=== PATIENT | female | born 1940 | race American Indian/Alaskan Native ===

== ENCOUNTER 2017-04-12 08:07 | Outpatient (CLI) | payer MEDICARE ==
--- NOTE | 2017-04-12 15:45 | PET Report ---
PET/CT:04/12/17 08:07:00 CLINICAL: Right lung cancer initial staging. RADIOPHARMACEUTICAL: 14.83mCi F18-FDG. COMPARISON: CT chest 03/13/[address] abdomen and pelvis 03/17/17 TECHNIQUE- Following intravenous injection of F-18 FDG and an approximately 60 minute uptake period, CT and PET images from the mid skull to the upper thighs were acquired with the patient in the fasted state. No contrast was administered. The CT protocol used for this PET CT study is designed for attenuation correction and anatomic localization of PET abnormalities. This principal database developer CT is not desired to produce and cannot replace, [id number] diagnostic CT scans with specific imaging protocols for different body parts and indications. Plasma glucose at the time of this test: 107g/dl. The standardized uptake values (SUV) are normalized to patient body weight and indicate the highest activity concentration (SUV max) in a given disease site. FINDINGS: Brain--Physiologic FDG uptake in the visualized regions of the brain. Neck--Physiologic FDG uptake . Chest--Physiologic FDG uptake in mediastinal blood pool and myocardium. Lungs--An irregular posterior medial right upper lobe pleural-based mass measures 6.0 x 6.0 x 4.5 cm. Mild cavitation of the mass with a 1 cm pocket of air. The periphery of the mass is FDG avid with SUV 13.2. The mass erodes the right lateral aspect of vertebral bodies T2, T3 and T4 and extends into the spinal canal at T3. There is also erosion of the right third and fourth ribs in the right third and fourth transverse processes. An FDG avid mass in this appears segment of the left lower lobe measures 1.6 x 1.3 cm with SUV 11.3. No other lung mass. Pleura/pericardium--No abnormal uptake. Thoracic nodes--No abnormal uptake. No lymphadenopathy. Hepatobiliary--No abnormal uptake. Liver background SUV mean, as a reference for comparing FDG studies, is 2.9 . No liver mass. Spleen--No abnormal uptake. Pancreas--No abnormal uptake. Adrenal Glands--A 2.0 x 1.8 cm FDG avid right adrenal mass with SUV 6.6. The left adrenal gland is normal. Kidneys/Ureters/Bladder--No abnormal uptake. Abdominopelvic Nodes--Focal FDG uptake in the left pelvis with SUV 13.3 is suspicious for an FDG avid left internal iliac lymph node but the FDG uptake is at the margin of the sigmoid colon and is indistinguishable from an iliac lymph node. Bowel/Peritoneum/Mesentery--No abnormal uptake. Pelvic organs--No abnormal uptake. Bones/Soft Tissues--FDG avid lytic destruction of T2,T3 and T4 vertebra and right ribs and transverse processes 3 and 4. A 1.5 x 1.5 cm FDG avid soft tissue nodule of the left upper back is posterior to the medial left scapula and contiguous to the skin with SUV 10.3. Other findings: Calcified gallbladder filled with stones. IMPRESSION- 1. A 6 cm right upper lobe pleural-based bronchogenic tumor with direct extension to involve the thoracic spine at T2-T4. 2. FDG avid tumor extends into the spinal canal at T3. 3. A 1.6 cm FDG avid left lower lobe superior segment lung metastasis. 4. Right adrenal metastasis. 5. A 1.5 cm deep soft tissue nodular metastasis superficial to the upper medial scapula. 6. Suspicious FDG uptake in the left pelvic sidewall adjacent to the sigmoid colon. This activity correlates with a 1.3 x 1.3 cm hypodense mass on the recent CT pelvis which may be a metastatic internal iliac lymph node.
== END 2017-04-12 08:08 | disposition home or self-care (01) ==
LOC: PET 08:07
PROVIDERS: ATTEND Internal Medicine Hematology & Oncology
DX: C78.02 Secondary malignant neoplasm of left lung (principal); C79.51 Secondary malignant neoplasm of bone; C79.82 Secondary malignant neoplasm of genital organs; C34.11 Malignant neoplasm of upper lobe, right bronchus or lung; K80.20 Calculus of gallbladder without cholecystitis without obstruction; D64.9 Anemia, unspecified; R91.8 Other nonspecific abnormal finding of lung field; Z79.899 Other long term (current) drug therapy
CPT/HCPCS: 78815; 82962; A9552

== ENCOUNTER 2017-07-26 10:56 | Outpatient (CLI) | payer MEDICARE ==
--- NOTE | 2017-07-30 09:17 | PET Report ---
PET SB TO MT SUBSEQUENT: HISTORY: Restaging of lung cancer. TECHNIQUE: 12.9 millicuries F-18 FDG was administered intravenously. Noncontrast CT images and PET images were obtained from the skull base to the proximal thighs. Fused images were reviewed on a workstation. The patient's blood glucose level measured 92. COMPARISON: 04/12/17. FINDINGS: BRAIN: physiologic FDG uptake in the imaged brain. NECK: There are 2 new mildly enlarged left supraclavicular lymph nodes with Max SUV measuring 4.4 and 10.1. LUNGS: The right apical mass appears relatively stable in size measuring 5.9 x 4.4 cm in axial plane. Max SUV has decreased slightly from 12.8 to 11.9. There appears to be mild central necrosis on today's exam. A left lower lobe mass has nearly resolved decreasing from 1.6 cm to 0.5 cm. Max SUV is within normal limits measuring 1.8. No new pulmonary mass is appreciated. PLEURA/PERICARDIUM: physiologic FDG uptake. THORACIC LYMPH NODES: A left axillary lymph node has increased from 1 cm to 2 cm in diameter. Max SUV as increased from 2.8 to 6.8. HEPATOBILIARY: physiologic FDG uptake. Mean liver SUV measures 2.4 as opposed to 2.8 on the previous exam. Cholelithiasis is unchanged. PANCREAS: physiologic FDG uptake. SPLEEN: physiologic FDG uptake. ADRENAL GLANDS: A right adrenal mass has increased from 2 cm to 3 cm in greatest diameter. Max SUV has increased from 6.6 to 9.0. The left adrenal gland remains within normal limits. KIDNEYS/RENAL COLLECTING SYSTEMS: physiologic FDG uptake. 4 cm left renal cyst is unchanged. BOWEL/MESENTERY: There is a new focus of uptake in the right lower quadrant mesentery measuring approximately 2.5 cm with Max SUV measuring 9.0. This presumably represents a mesenteric metastasis. PELVIC VISCERA: physiologic FDG uptake. ABDOMINAL/PELVIC LYMPH NODES: A new 1 cm right retrocrural lymph node demonstrates a max SUV of 4.8. There are approximately 4 or 5 new retroperitoneal lymph nodes measuring less than 2 cm with Max SUV measuring up to 8.1. There are 2 new lymph nodes in the right groin region with Max SUV measuring 5.8 and 9.4. MUSCULOSKELETAL: Soft tissue mass in the upper left back just superior to the scapula has increased from 1.5 cm to 7.1 x 5.6 cm. Max SUV has increased from 10.3 to 17.5. The right apical mass erodes into the right side of the T2 and T3 vertebral bodies and posterior ribs which has not significantly changed. This mass is in close vicinity to the spinal canal. Consider further evaluation with MRI of the cervical/thoracic spine with contrast if needed. There is also a focus of increased radiotracer uptake in the skin just lateral and superior to the right hip with Max SUV measuring 6.8. This appears to represent a new dermal metastasis. IMPRESSION: Overall, progression of disease is demonstrated since 04/12/17 exam. The right apical mass which erodes into the superior mediastinum and bony spine demonstrates mild decrease in metabolic activity and increased internal necrosis. A left lower lobe mass has essentially resolved. There are however multiple new hypermetabolic lymph nodes primarily in the left supraclavicular chain, left axillary chain, right retrocrural chain, retroperitoneum and right inguinal chain. There appears to be a new area of hypermetabolic activity in the right lower quadrant mesentery which may represent mesenteric metastasis. There also appears to be a new dermal metastasis lateral to the right hip. Please see above.
== END 2017-07-26 10:57 | disposition home or self-care (01) ==
LOC: PET 10:56
PROVIDERS: ATTEND Internal Medicine Hematology & Oncology
DX: C34.11 Malignant neoplasm of upper lobe, right bronchus or lung (principal); R91.8 Other nonspecific abnormal finding of lung field; D64.9 Anemia, unspecified; R79.89 Other specified abnormal findings of blood chemistry
CPT/HCPCS: 78815; 82962; A9552

== ENCOUNTER 2017-08-17 02:12 | Inpatient (IN) | payer MEDICARE ==
--- NOTE | 2017-08-17 03:48 | XRay Report ---
FINAL REPORT EXAM: XR CHEST 1V AP HISTORY: fall TECHNIQUE: A portable semi-upright view the chest was obtained. Comparison is made to the study of 03/15/2017. FINDINGS: The lungs are hyperinflated. There is a stable right part tracheal mass along the right lung apex measuring 6.6 cm x 2.8 cm compatible with a malignancy. This is not changed significantly since previous study. No additional lung lesions are seen. The heart size is normal. There is no evidence of pneumothorax or pleural effusion. The thoracic aorta is mildly tortuous. The bones and soft tissues reveal generalized osteoporosis. IMPRESSION: Stable right paratracheal neoplasm noted. No evidence of infiltrate, congestion, or pneumothorax.
--- NOTE | 2017-08-17 03:48 | XRay Report ---
FINAL REPORT EXAM: XR PELVIS 1-2V HISTORY: fall TECHNIQUE: An AP view the pelvis was obtained. FINDINGS: There is osteoporosis. The bony pelvic ring appears intact. The hip and SI joints appear normal. There is no evidence of fracture. There are extensive vascular calcifications throughout the pelvis. In the right-sided abdomen there is a curvilinear type calcification which is suspicious for calcification in the wall of gallbladder. There is disc degeneration in the lower lumbar spine IMPRESSION: Osteoporosis. No acute fracture of all the pelvis. 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
[2017-08-17 03:50] LABS: Albumin 2.9 g/dL (3.9-5); BUN/Creatinine Ratio 23; Blood Urea Nitrogen 23 mg/dL (7-17); Hemolysis Index 153
[2017-08-17 04:10] LABS: Eosinophils # (Auto) 0.1 K/mm3 (0.0-0.4); Eosinophils % (Auto) 2.8 % (0.0-4.3); Hematocrit 25.6 % (30.3-42.9); Hemoglobin 8.3 gm/dl (10.1-14.3); Lymphocytes # (Auto) 1.5 K/mm3 (1.2-5.4); Mean Corpuscular HGB Conc 33 % (30-34); Mean Corpuscular Hemoglobin 27 pg (28-32); Mean Corpuscular Volume 83 fl (79-97); Monocytes # (Auto) 0.5 K/mm3 (0.0-0.8); Platelet Count 142 K/mm3 (140-440); Red Cell Distribution Width 16.5 % (13.2-15.2)
[2017-08-17 04:18] LABS: Calcium 12.3 mg/dL (8.4-10.2)
[2017-08-17 04:19] LABS: Alanine Aminotransferase < 5 units/L (7-56)
--- NOTE | 2017-08-17 04:19 | Cat Scan Report ---
FINAL REPORT EXAM: CT HEAD/BRAIN WO CON HISTORY: weakness, fall TECHNIQUE: Routine axial imaging was obtained of the brain without IV contrast. Correlation with the MRI of the brain study of 03/17/2017 was obtained. FINDINGS: There is age related atrophy. There is no evidence of acute stroke or hemorrhage. There is slightly diminished attenuation of the periventricular white matter compatible with chronic microvascular disease changes. There is stable non specific left to meningeal thickening overlying the right convexity. There is no mass effect. The calvarium reveals 2 right-sided frontal elise holes with non specific sclerotic foci in the calvarium. There is also sclerotic changes of the left ethmoidal air cells. The mastoid air cells are well pneumatized. IMPRESSION: Age related atrophy with chronic microvascular disease changes. No evidence of acute stroke or hemorrhage. Stable nonspecific right convexity left meningeal thickening, unchanged from the study of 03/17/2017. Nonspecific sclerotic foci involving the calvarium bilaterally and left ethmoid air cells.
[2017-08-17] MEDS ORDERED: NACL 0.9% 500 ML 500 ML IV ONE (04:24)
--- NOTE | 2017-08-17 04:26 | Cat Scan Report ---
FINAL REPORT EXAM: CT CERVICAL SPINE WO CON HISTORY: fall TECHNIQUE: Routine axial imaging was obtained of the cervical spine without IV contrast with sagittal and coronal reconstructions. FINDINGS: There is osteoporosis. The cervical disc heights and alignment appear normal. The canal size is normal. The prevertebral soft tissues and C1-C2 articulation do not show any acute changes. There are destructive changes of the right side of the T2 and T3 vertebral bodies along with associated pedicles and transverse processes related to the patient's known right paratracheal neoplasm. Destructive changes of the adjacent ribs are also noted. These findings are essentially unchanged from the previous CT scan of the chest 03/13/2017. IMPRESSION: No acute injury involving the cervical spine. Osteolytic destructive changes of the T2 and T3 vertebra and adjacent ribs unchanged from the previous study.
--- NOTE | 2017-08-17 04:55 | Emergency Department Report ---
HPI - General Chief Complaint: Weakness Time Seen by Provider: 08/17/17 02:50 - HPI HPI: 77-year-old female presents to the emergency department by EMS from home with complaint of some generalized weakness and a fall today because of it. Family also says that she has been showing some signs of confusion. The patient normally is able to ambulate without any assistance and is unable to walk at this time secondary to her weakness. She has a history of stage IV lung cancer with bony metastasis to the thoracic spine and questionably to some lymph nodes. Patient follows with Dr. Hector for oncology. She has previously had radiation and the daughter says that she is getting IV chemotherapy and was supposed to have her next round today or tomorrow. Primary care physician is Dr. Armin Martin. The patient herself is a poor historian. The daughter also says that recently the patient was dealing with some hypocalcemia and had to get some type of transfusion. ED Past Medical Hx - Past Medical History Hx of Cancer: Yes (Stage 4 lung CA) - Social History Smoking Status: Never Smoker - Medications Home Medications: Home Medications Medication Instructions Recorded Confirmed Last Taken Type Dexamethasone [Decadron] 4 mg PO Q8H #40 tablet 03/23/17 Unknown Rx Famotidine [Pepcid] 10 mg PO BID #40 tablet 03/23/17 Unknown Rx amLODIPine [Norvasc] 10 mg PO DAILY #30 tablet 03/23/17 Unknown Rx oxyCODONE /ACETAMINOPHEN [Percocet 1 tab PO Q6H PRN #30 tablet 03/23/17 Unknown Rx 5/325 mg] ED Review of Systems ROS: Stated complaint: GENERAL WEAKNESS Other details as noted in HPI Comment: Unobtainable due to pts medical conditions Physical Exam - Physical Exam Vital Signs: Vital Signs 08/17/17 08/17/17 08/17/17 02:50 02:54 02:59 Temperature 98.2 F 98.3 F Pulse Rate 87 57 L Respiratory 12 14 12 Rate Blood Pressure 111/52 111/52 [Left] O2 Sat by Pulse 94 94 94 Oximetry Physical Exam: GENERAL: Patient is ill-appearing. Thin habitus and slightly cachectic. HENT: Normocephalic. Atraumatic. Patient has moist mucous membranes. EYES: Extraocular motions are intact. Pupils equal reactive to light bilaterally. NECK: Supple. Trachea is midline. CHEST/LUNGS: Clear to auscultation. There is no respiratory distress noted. HEART/CARDIOVASCULAR: Regular. There is no tachycardia. There is no murmur. ABDOMEN: Abdomen is soft, nontender. Patient has normal bowel sounds. SKIN: Skin is warm and dry. NEURO: Patient is awake but hard to understand. She does follow some commands. Withdraws to painful stimuli. MUSCULOSKELETAL: There is no tenderness or deformity. There is no evidence of acute injury. ED Course Vital Signs 08/17/17 08/17/17 08/17/17 02:50 02:54 02:59 Temperature 98.2 F 98.3 F Pulse Rate 87 57 L Respiratory 12 14 12 Rate Blood Pressure 111/52 111/52 [Left] O2 Sat by Pulse 94 94 94 Oximetry ED Medical Decision Making - Lab Data Result diagrams: 08/17/17 02:31 08/17/17 02:31 - EKG Data -: EKG Interpreted by Pa EKG shows normal: sinus rhythm, axis (left axis deviation), intervals, QRS complexes (incomplete left bundle branch block), ST-T waves (nonspecific ST-T waves) Rate: bradycardia (57 bpm) - EKG Data When compared to previous EKG there are: previous EKG unavailable Interpretation: other (sinus bradycardia, left axis deviation, incomplete left bundle branch block, nonspecific ST-T waves) - Radiology Data Radiology results: report reviewed EXAM: XR PELVIS 1-2V HISTORY: fall TECHNIQUE: An AP view the pelvis was obtained. FINDINGS: There is osteoporosis. The bony pelvic ring appears intact. The hip and SI joints appear normal. There is no evidence of fracture. There are extensive vascular calcifications throughout the pelvis. In the right-sided abdomen there is a curvilinear type calcification which is suspicious for calcification in the wall of gallbladder. There is disc degeneration in the lower lumbar spine IMPRESSION: Osteoporosis. No acute fracture of all the pelvis. 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 EXAM: XR CHEST 1V AP HISTORY: fall TECHNIQUE: A portable semi-upright view the chest was obtained. Comparison is made to the study of 03/15/2017. FINDINGS: The lungs are hyperinflated. There is a stable right part tracheal mass along the right lung apex measuring 6.6 cm x 2.8 cm compatible with a malignancy. This is not changed significantly since previous study. No additional lung lesions are seen. The heart size is normal. There is no evidence of pneumothorax or pleural effusion. The thoracic aorta is mildly tortuous. The bones and soft tissues reveal generalized osteoporosis. IMPRESSION: Stable right paratracheal neoplasm noted. No evidence of infiltrate, congestion, or pneumothorax. EXAM: CT CERVICAL SPINE WO CON HISTORY: fall TECHNIQUE: Routine axial imaging was obtained of the cervical spine without IV contrast with sagittal and coronal reconstructions. FINDINGS: There is osteoporosis. The cervical disc heights and alignment appear normal. The canal size is normal. The prevertebral soft tissues and C1-C2 articulation do not show any acute changes. There are destructive changes of the right side of the T2 and T3 vertebral bodies along with associated pedicles and transverse processes related to the patient's known right paratracheal neoplasm. Destructive changes of the adjacent ribs are also noted. These findings are essentially unchanged from the previous CT scan of the chest 03/13/2017. IMPRESSION: No acute injury involving the cervical spine. Osteolytic destructive changes of the T2 and T3 vertebra and adjacent ribs unchanged from the previous study. EXAM: CT HEAD/BRAIN WO CON HISTORY: weakness, fall TECHNIQUE: Routine axial imaging was obtained of the brain without IV contrast. Correlation with the MRI of the brain study of 03/17/2017 was obtained. FINDINGS: There is age related atrophy. There is no evidence of acute stroke or hemorrhage. There is slightly diminished attenuation of the periventricular white matter compatible with chronic microvascular disease changes. There is stable non specific left to meningeal thickening overlying the right convexity. There is no mass effect. The calvarium reveals 2 right-sided frontal elise holes with non specific sclerotic foci in the calvarium. There is also sclerotic changes of the left ethmoidal air cells. The mastoid air cells are well pneumatized. IMPRESSION: Age related atrophy with chronic microvascular disease changes. No evidence of acute stroke or hemorrhage. Stable nonspecific right convexity left meningeal thickening, unchanged from the study of 03/17/2017. Nonspecific sclerotic foci involving the calvarium bilaterally and left ethmoid air cells. - Medical Decision Making The patient was brought in for some generalized weakness that has gotten to the point where she had a fall and is having trouble walking. She had a CT scan of the head and cervical spine that did not show any acute processes. There are some osteolytic lesions to the upper thoracic spine consistent with her metastatic disease but this is unchanged from previous. Chest x-ray shows the lung masses but no pneumothorax, pleural effusion or obvious pneumonia. Her labs show significant hypercalcemia which may be part of the etiology of her symptoms. She was given some IV fluid resuscitation. She will be admitted to the hospital for further evaluation and treatment has been accepted for admission by the hospitalist, Dr. Barrett. - Differential Diagnosis electrode abnormalities, dysrhythmia, TIA, brain metastasis Critical Care Time: No Critical care attestation.: If time is entered above; I have spent that time in minutes in the direct care of this critically ill patient, excluding procedure time. ED Disposition Clinical Impression: Generalized weakness, Hypercalcemia Lung cancer Qualifiers: Laterality: unspecified laterality Lung location: unspecified part of lung Qualified Code(s): C34.90 - Malignant neoplasm of unspecified part of unspecified bronchus or lung Fall Qualifiers: Encounter type: initial encounter Qualified Code(s): W19.XXXA - Unspecified fall, initial encounter Disposition: OP ADMIT IP TO THIS HOSP Is pt being admited?: Yes Condition: Serious Referrals: PRIMARY CARE, [Primary Care Provider] - 3-5 Days Time of Disposition: 05:55
[2017-08-17 06:19] LABS: Amorphous Crystals,Urine Few; Bilirubin,Urine NEG (Negative); Blood,Urine NEG (Negative); Color,Urine Yellow (Yellow); Protein,Urine <15 mg/dL mg/dL (Negative); Urobilinogen,Urine < 2.0 mg/dL (<2.0); WBC,Urine < 1.0 /HPF (0.0-6.0)
[2017-08-17] MEDS ORDERED: ZOFRAN IV PRN (06:20)
[2017-08-17] MEDS: NACL 0.9% 1000 ML 1,000 ML IV SCH (07:30)
--- NOTE | 2017-08-17 10:07 | Hem/Onc Progress Note ---
Assessment and Plan Patient is confused possibly related to hypercalcemia. We also check CT of the head. We will start her on pamidronate and monitor counts Subjective Date of service: 08/17/17 Interval history: Patient known to me. Metastatic non-small cell lung cancer. She received immunotherapy had mixed response. He did have progressive disease in the abdomen but primary tumor shrank which could be related to radiation. She was to start Alimta next week but presented to the hospital with weakness and hypercalcemia. Objective - Exam Narrative Exam: Confused - Constitutional Vitals: Last Vital Signs Temp 98.3 F 08/17/17 02:54 Pulse 64 08/17/17 05:36 Resp 12 08/17/17 05:36 BP 109/61 08/17/17 05:36 Pulse Ox 95 08/17/17 05:36 General appearance: cachectic Performance status: 4-completely disabled - Neck Neck: supple - Respiratory Respiratory: bilateral: diminished - Cardiovascular Rhythm: regular Extremities: No edema - Gastrointestinal General gastrointestinal: Present: soft - Labs Lab Results: Laboratory Results - last 24 hr 08/17/17 08/17/17 08/17/17 02:31 02:31 02:31 WBC 4.8 RBC 3.10 L Hgb 8.3 L Hct 25.6 L MCV 83 MCH 27 L MCHC 33 RDW 16.5 H Plt Count 142 Lymph % (Auto) 31.0 [place] % (Auto) 11.0 H Eos % (Auto) 2.8 Baso % (Auto) 1.0 Lymph # 1.5 [place] # 0.5 Eos # 0.1 Baso # 0.0 Seg Neutrophils % 54.2 Seg Neutrophils # 2.6 Sodium 132 L Potassium 4.2 Chloride 98.5 Carbon Dioxide 23 Anion Gap 15 BUN 23 H Creatinine 1.0 Estimated GFR > 60 BUN/Creatinine Ratio 23 Glucose 79 Lactic Acid Calcium 12.3 H* Total Bilirubin 0.30 AST 16 ALT < 5 L Alkaline Phosphatase 54 Lactate Dehydrogenase TNR Total Creatine Kinase 85 Troponin T < 0.010 Total Protein 7.0 Albumin 2.9 L Albumin/Globulin Ratio 0.7 TSH Urine Color Urine Turbidity Urine pH Ur Specific [place] Urine Protein Urine Glucose (UA) Urine Ketones Urine Blood Urine Nitrite Urine Bilirubin Urine Urobilinogen Ur Leukocyte Esterase Urine WBC (Auto) Urine RBC (Auto) U Epithel Cells (Auto) Amorphous Crystals 06/08/17/17 08/17/17 03:01 03:01 04:45 WBC RBC Hgb Hct MCV MCH MCHC RDW Plt Count Lymph % (Auto) [place] % (Auto) Eos % (Auto) Baso % (Auto) Lymph # [place] # Eos # Baso # Seg Neutrophils % Seg Neutrophils # Sodium Potassium Chloride Carbon Dioxide Anion Gap BUN Creatinine Estimated GFR BUN/Creatinine Ratio Glucose Lactic Acid 1.00 Calcium Total Bilirubin AST ALT Alkaline Phosphatase Lactate Dehydrogenase Total Creatine Kinase Troponin T Total Protein Albumin Albumin/Globulin Ratio TSH 1.650 Urine Color Yellow Urine Turbidity Hazy Urine pH 5.0 Ur Specific [place] 1.008 Urine Protein <15 mg/dl Urine Glucose (UA) Neg Urine Ketones Neg Urine Blood Neg Urine Nitrite Neg Urine Bilirubin Neg Urine Urobilinogen < 2.0 Ur Leukocyte Esterase Neg Urine WBC (Auto) < 1.0 Urine RBC (Auto) 1.0 U Epithel Cells (Auto) < 1.0 Amorphous Crystals Few
[2017-08-17] MEDS ORDERED: AREDIA 90 MG in NACL 0.9% 1000 ML 1,000 ML IV ONE (11:00)
--- NOTE | 2017-08-17 11:44 | History and Physical Report ---
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 She has had radiotherapy, is on chemotherapy. She presented with generalized weakness followed by fall because of weakness. She was therefore brought to hospital. In ED, was found to have hypercalcemia with Calcium 12.3. She denied chest pain, shortness of breath. She was evaluated in ED, and Oncologist was consulted. She will be admitted to med/surg floor for further management.. Past History Past Medical History: cancer (Lung cancer with metastases to bone), other Past Surgical History: No surgical history Social history: lives with family, full code. denies: alcohol abuse Family history: hypertension Medications and Allergies Allergies Allergy/AdvReac Type Severity Reaction Status Date / Time No Known Allergies Allergy Verified 03/12/17 17:13 Home Medications Medication Instructions Recorded Confirmed Last Taken Type Alendronate Sodium [Fosamax] 70 mg PO QWEEK 08/17/17 08/17/17 Unknown History Diazepam [Valium] 10 mg PO Q12H PRN 08/17/17 08/17/17 Unknown History Oxycodone HCl/Acetaminophen 1 each PO Q8HR PRN 08/17/17 08/17/17 Unknown History [Percocet 10/325 mg] Active Meds: Active Medications Sodium Chloride (Nacl 0.9% 1000 Ml) 1,000 mls @ 75 mls/hr IV DIRECT ALTA Last Admin: 08/17/17 07:30 Dose: 75 mls/hr Pamidronate Disodium 90 mg/ (Sodium Chloride) 1,010 mls @ 100 mls/hr IV ONCE ONE Stop: 08/17/17 21:05 Last Admin: 08/17/17 11:23 Dose: 100 mls/hr Ondansetron HCl (Zofran) 4 mg IV Q4H PRN PRN Reason: N/V IF NPO AND NO IV ACCESS Exam - Physical Exam Narrative exam: Gen : Not in acute distress, lying in bed,malnourished,ill looking HEENT:Normocephalic, atraumatic Neck: supple, No JVD Lungs: Clear to auscultation, no crackles, no wheeze, no rhonchi, Heart :S1 and S2 reg, no murmurs, rubs or gallop Abd:soft, non tender, non distended, normal bowel sounds Ext: No edema, no clubbing, no cyanosis Neuro: Awake,alert,oriented x 3, no focal signs - Constitutional Vitals: Temp Pulse Resp BP Pulse Ox 98.3 F 64 12 109/61 95 08/17/17 02:54 08/17/17 05:36 08/17/17 05:36 08/17/17 05:36 08/17/17 05:36 Results - Labs CBC & Chem 7: 08/19/17 08:59 08/19/17 05:50 Labs: Abnormal lab results 08/17/17 08/17/17 Range/Units 02:31 02:31 RBC 3.10 L (3.65-5.03) M/mm3 Hgb 8.3 L (10.1-14.3) gm/dl Hct 25.6 L (30.3-42.9) % MCH 27 L (28-32) pg RDW 16.5 H (13.2-15.2) % [place] % (Auto) 11.0 H (0.0-7.3) % Sodium 132 L (137-145) mmol/L BUN 23 H (7-17) mg/dL Calcium 12.3 H* (8.4-10.2) mg/dL ALT < 5 L (7-56) units/L Albumin 2.9 L (3.9-5) g/dL Assessment and Plan Hypercalcemia. Admit to medical floor IV fluid Discussed with Dr. Hector, Oncologist Pamidronate iv ordered by Oncologist Lung cancer with metastases to bone. Managed by Dr. Hector Malnutrition, Consult Cross Tie Tram Loader Full code status
[2017-08-17] MEDS: MORPHINE IV PRN (17:00)
[2017-08-17] MEDS: ATIVAN IV PRN (20:00)
[2017-08-18 06:46] LABS: Albumin 2.7 g/dL (3.9-5); BUN/Creatinine Ratio 19; Blood Urea Nitrogen 15 mg/dL (7-17); Calcium 11.4 mg/dL (8.4-10.2); Hemolysis Index 10
[2017-08-18 06:48] LABS: Basophils # (Auto) 0.1 K/mm3 (0.0-0.1); Eosinophils # (Auto) 0.2 K/mm3 (0.0-0.4); Eosinophils % (Auto) 2.6 % (0.0-4.3); Hematocrit 30.5 % (30.3-42.9); Hemoglobin 9.9 gm/dl (10.1-14.3); Lymphocytes # (Auto) 1.1 K/mm3 (1.2-5.4); Mean Corpuscular HGB Conc 32 % (30-34); Mean Corpuscular Hemoglobin 26 pg (28-32); Mean Corpuscular Volume 82 fl (79-97); Monocytes # (Auto) 1.2 K/mm3 (0.0-0.8); Monocytes % (Auto) 13.3 % (0.0-7.3); Red Blood Count 3.73 M/mm3 (3.65-5.03); Red Cell Distribution Width 16.3 % (13.2-15.2)
[2017-08-18 06:52] LABS: Alanine Aminotransferase < 5 units/L (7-56)
[2017-08-18 07:20] LABS: Platelet Count 214 K/mm3 (140-440)
[2017-08-18] MEDS: ATIVAN IV PRN (12:51)
[2017-08-18] MEDS: NACL 0.9% 1000 ML 1,000 ML IV SCH (15:07)
--- NOTE | 2017-08-18 15:32 | Progress Note ---
Assessment and Plan Assessment and plan: Hypercalcemia. Admitted to medical floor IV fluid Discussed with Dr. Hector, Oncologist Pamidronate iv ordered by Oncologist, given yesterday Calcium now 11.4 , down from 12.3 on admission. Lung cancer with metastases to bone. Managed by Dr. Hector Malnutrition, Consulted Food Service Worker Full code status History Interval history: Still gen weakness sleepy no fever no chest pain Hospitalist Physical - Physical exam Narrative exam: Gen : Not in acute distress, lying in bed,malnourished,ill looking HEENT:Normocephalic, atraumatic Neck: supple, No JVD Lungs: Clear to auscultation, no crackles, no wheeze, no rhonchi, Heart :S1 and S2 reg, no murmurs, rubs or gallop Abd:soft, non tender, non distended, normal bowel sounds Ext: No edema, no clubbing, no cyanosis Neuro: Awake,alert,oriented x 3, no focal signs - Constitutional Vitals: Temp Pulse Resp BP Pulse Ox 97.0 F L 77 16 167/80 98 08/18/17 08:04 08/18/17 08:04 08/18/17 08:04 08/18/17 08:04 08/18/17 08:46 Results - Labs CBC & Chem 7: 08/20/17 05:31 08/20/17 05:31 Labs: Laboratory Last Values WBC 8.9 K/mm3 (4.5-11.0) 08/18/17 05:46 RBC 3.73 M/mm3 (3.65-5.03) 08/18/17 05:46 Hgb 9.9 gm/dl (10.1-14.3) L 08/18/17 05:46 Hct 30.5 % (30.3-42.9) 08/18/17 05:46 MCV 82 fl (79-97) 08/18/17 05:46 MCH 26 pg (28-32) L 08/18/17 05:46 MCHC 32 % (30-34) 08/18/17 05:46 RDW 16.3 % (13.2-15.2) H 08/18/17 05:46 Plt Count 214 K/mm3 (140-440) 08/18/17 05:46 Lymph % (Auto) 12.0 % (13.4-35.0) L 08/18/17 05:46 [place] % (Auto) 13.3 % (0.0-7.3) H 08/18/17 05:46 Eos % (Auto) 2.6 % (0.0-4.3) 08/18/17 05:46 Baso % (Auto) 1.0 % (0.0-1.8) 08/18/17 05:46 Lymph # 1.1 K/mm3 (1.2-5.4) L 08/18/17 05:46 [place] # 1.2 K/mm3 (0.0-0.8) H 08/18/17 05:46 Eos # 0.2 K/mm3 (0.0-0.4) 08/18/17 05:46 Baso # 0.1 K/mm3 (0.0-0.1) 08/18/17 05:46 Seg Neutrophils % 71.1 % (40.0-70.0) H 08/18/17 05:46 Seg Neutrophils # 6.3 K/mm3 (1.8-7.7) 08/18/17 05:46 Sodium 139 mmol/L (137-145) D 08/18/17 05:46 Potassium 3.5 mmol/L (3.6-5.0) L 08/18/17 05:46 Chloride 106.6 mmol/L (98-107) 08/18/17 05:46 Carbon Dioxide 19 mmol/L (22-30) L 08/18/17 05:46 Anion Gap 17 mmol/L 08/18/17 05:46 BUN 15 mg/dL (7-17) 08/18/17 05:46 Creatinine 0.8 mg/dL (0.7-1.2) 08/18/17 05:46 Estimated GFR > 60 ml/min 08/18/17 05:46 BUN/Creatinine Ratio 19 % 08/18/17 05:46 Glucose 81 mg/dL (65-100) 08/18/17 05:46 Lactic Acid 1.00 mmol/L (0.7-2.0) 08/17/17 03:01 Calcium 11.4 mg/dL (8.4-10.2) H 08/18/17 05:46 Total Bilirubin 0.30 mg/dL (0.1-1.2) 08/18/17 05:46 AST 11 units/L (5-40) 08/18/17 05:46 ALT < 5 units/L (7-56) L 08/18/17 05:46 Alkaline Phosphatase 60 units/L (35-129) 08/18/17 05:46 Lactate Dehydrogenase TNR 08/17/17 02:31 Total Creatine Kinase 85 units/L (30-135) 08/17/17 02:31 Troponin T < 0.010 ng/mL (0.00-0.029) 08/17/17 02:31 Total Protein 6.8 g/dL (6.3-8.2) 08/18/17 05:46 Albumin 2.7 g/dL (3.9-5) L 08/18/17 05:46 Albumin/Globulin Ratio 0.7 % 08/18/17 05:46 TSH 1.650 mlU/mL (0.270-4.200) 08/17/17 03:01 Urine Color Yellow (Yellow) 08/17/17 04:45 Urine Turbidity Hazy (Clear) 08/17/17 04:45 Urine pH 5.0 (5.0-7.0) 08/17/17 04:45 Ur Specific [place] 1.008 (1.003-1.030) 08/17/17 04:45 Urine Protein <15 mg/dl mg/dL (Negative) 08/17/17 04:45 Urine Glucose (UA) Neg mg/dL (Negative) 08/17/17 04:45 Urine Ketones Neg mg/dL (Negative) 08/17/17 04:45 Urine Blood Neg (Negative) 08/17/17 04:45 Urine Nitrite Neg (Negative) 08/17/17 04:45 Urine Bilirubin Neg (Negative) 08/17/17 04:45 Urine Urobilinogen < 2.0 mg/dL (<2.0) 08/17/17 04:45 Ur Leukocyte Esterase Neg (Negative) 08/17/17 04:45 Urine WBC (Auto) < 1.0 /HPF (0.0-6.0) 08/17/17 04:45 Urine RBC (Auto) 1.0 /HPF (0.0-6.0) 08/17/17 04:45 U Epithel Cells (Auto) < 1.0 /HPF (0-13.0) 08/17/17 04:45 Amorphous Crystals Few 08/17/17 04:45
[2017-08-18] MEDS: POTASSIUM CHLORIDE FEEDTUBE SCH ×2 (17:00→23:21)
[2017-08-18] MEDS: MORPHINE IV PRN (17:55)
[2017-08-19] MEDS: NACL 0.9% 1000 ML 1,000 ML IV SCH ×2 (02:02→23:24)
[2017-08-19 06:33] LABS: Albumin 3.1 g/dL (3.9-5); BUN/Creatinine Ratio 17; Blood Urea Nitrogen 12 mg/dL (7-17); Calcium 11.3 mg/dL (8.4-10.2); Hemolysis Index 30
[2017-08-19 06:36] LABS: Alanine Aminotransferase < 5 units/L (7-56)
[2017-08-19 09:55] LABS: Hemoglobin 10.6 gm/dl (10.1-14.3); Red Blood Count 3.92 M/mm3 (3.65-5.03)
[2017-08-19 09:56] LABS: Basophils # (Auto) 0.1 K/mm3 (0.0-0.1); Basophils % (Auto) 1.1 % (0.0-1.8); Eosinophils # (Auto) 0.3 K/mm3 (0.0-0.4); Eosinophils % (Auto) 2.6 % (0.0-4.3); Lymphocytes # (Auto) 1.3 K/mm3 (1.2-5.4); Lymphocytes % (Auto) 12.4 % (13.4-35.0); Mean Corpuscular HGB Conc 33 % (30-34); Mean Corpuscular Hemoglobin 27 pg (28-32); Mean Corpuscular Volume 82 fl (79-97); Monocytes # (Auto) 1.5 K/mm3 (0.0-0.8); Monocytes % (Auto) 13.9 % (0.0-7.3); Platelet Count 410 K/mm3 (140-440); Red Cell Distribution Width 16.8 % (13.2-15.2)
[2017-08-19] MEDS: ATIVAN IV PRN (11:55)
--- NOTE | 2017-08-19 15:17 | Hem/Onc Progress Note ---
Assessment and Plan 1. NSCLC with hypercalcemia - calcium improving after pamidronate, IVF - continue normal saline Subjective Date of service: 08/19/17 Interval history: sleeping after receiving Ativan per daughter, still confused Objective - Constitutional Vitals: Last Vital Signs Temp 97.5 F L 08/19/17 08:12 Pulse 83 08/19/17 08:12 Resp 18 08/19/17 08:12 BP 169/89 08/19/17 08:12 Pulse Ox 87 08/19/17 08:12 General appearance: no acute distress - EENT ENT: other (dry oral mucosa) - Neck Neck: supple - Respiratory Respiratory: bilateral: CTA - Cardiovascular Rhythm: regular - Labs Lab Results: Laboratory Results - last 24 hr 08/19/17 08/19/17 05:50 08:59 WBC 10.7 RBC 3.92 Hgb 10.6 Hct 32.0 MCV 82 MCH 27 L MCHC 33 RDW 16.8 H Plt Count 410 Lymph % (Auto) 12.4 L [place] % (Auto) 13.9 H Eos % (Auto) 2.6 Baso % (Auto) 1.1 Lymph # 1.3 [place] # 1.5 H Eos # 0.3 Baso # 0.1 Seg Neutrophils % 70.0 Seg Neutrophils # 7.5 Sodium 141 Potassium 5.2 H D Chloride 110.7 H Carbon Dioxide 21 L Anion Gap 15 BUN 12 Creatinine 0.7 Estimated GFR > 60 BUN/Creatinine Ratio 17 Glucose 86 Calcium 11.3 H Total Bilirubin 0.30 AST 10 ALT < 5 L Alkaline Phosphatase 67 Total Protein 6.9 Albumin 3.1 L Albumin/Globulin Ratio 0.8
[2017-08-19] MEDS: HEPARIN SUB-Q SCH ×2 (15:59→22:46)
--- NOTE | 2017-08-20 00:01 | Progress Note ---
Assessment and Plan Assessment and plan: Hypercalcemia with Calcium 12.3 on admission. Admitted to medical floor IV fluid Discussed with Dr. Hector, Oncologist Pamidronate iv ordered by Oncologist, on admission Calcium now 11.3 , down from 12.3 on admission. Lung cancer with metastases to bone. Managed by Dr. Hector Metabolic encephalopathy with confusion, drowsiness Malnutrition, Consulted Bending Frame Operator Full code status History Interval history: Still generalized weakness sleepy, confused no fever no chest pain Hospitalist Physical - Physical exam Narrative exam: Gen : Not in acute distress, lying in bed,malnourished,ill looking HEENT:Normocephalic, atraumatic Neck: supple, No JVD Lungs: Clear to auscultation, no crackles, no wheeze, no rhonchi, Heart :S1 and S2 reg, no murmurs, rubs or gallop Abd:soft, non tender, non distended, normal bowel sounds Ext: No edema, no clubbing, no cyanosis Neuro: lethargic, confused, no focal signs - Constitutional Vitals: Temp Pulse Resp BP Pulse Ox 98.2 F 88 16 176/86 98 08/19/17 19:36 08/19/17 19:36 08/19/17 19:36 08/19/17 19:36 08/19/17 22:00 Results - Labs CBC & Chem 7: 08/20/17 05:31 08/20/17 05:31 Labs: Laboratory Last Values WBC 10.7 K/mm3 (4.5-11.0) 08/19/17 08:59 RBC 3.92 M/mm3 (3.65-5.03) 08/19/17 08:59 Hgb 10.6 gm/dl (10.1-14.3) 08/19/17 08:59 Hct 32.0 % (30.3-42.9) 08/19/17 08:59 MCV 82 fl (79-97) 08/19/17 08:59 MCH 27 pg (28-32) L 08/19/17 08:59 MCHC 33 % (30-34) 08/19/17 08:59 RDW 16.8 % (13.2-15.2) H 08/19/17 08:59 Plt Count 410 K/mm3 (140-440) 08/19/17 08:59 Lymph % (Auto) 12.4 % (13.4-35.0) L 08/19/17 08:59 [place] % (Auto) 13.9 % (0.0-7.3) H 08/19/17 08:59 Eos % (Auto) 2.6 % (0.0-4.3) 08/19/17 08:59 Baso % (Auto) 1.1 % (0.0-1.8) 08/19/17 08:59 Lymph # 1.3 K/mm3 (1.2-5.4) 08/19/17 08:59 [place] # 1.5 K/mm3 (0.0-0.8) H 08/19/17 08:59 Eos # 0.3 K/mm3 (0.0-0.4) 08/19/17 08:59 Baso # 0.1 K/mm3 (0.0-0.1) 08/19/17 08:59 Seg Neutrophils % 70.0 % (40.0-70.0) 08/19/17 08:59 Seg Neutrophils # 7.5 K/mm3 (1.8-7.7) 08/19/17 08:59 Sodium 141 mmol/L (137-145) 08/19/17 05:50 Potassium 5.2 mmol/L (3.6-5.0) H D 08/19/17 05:50 Chloride 110.7 mmol/L (98-107) H 08/19/17 05:50 Carbon Dioxide 21 mmol/L (22-30) L 08/19/17 05:50 Anion Gap 15 mmol/L 08/19/17 05:50 BUN 12 mg/dL (7-17) 08/19/17 05:50 Creatinine 0.7 mg/dL (0.7-1.2) 08/19/17 05:50 Estimated GFR > 60 ml/min 08/19/17 05:50 BUN/Creatinine Ratio 17 % 08/19/17 05:50 Glucose 86 mg/dL (65-100) 08/19/17 05:50 Lactic Acid 1.00 mmol/L (0.7-2.0) 08/17/17 03:01 Calcium 11.3 mg/dL (8.4-10.2) H 08/19/17 05:50 Total Bilirubin 0.30 mg/dL (0.1-1.2) 08/19/17 05:50 AST 10 units/L (5-40) 08/19/17 05:50 ALT < 5 units/L (7-56) L 08/19/17 05:50 Alkaline Phosphatase 67 units/L (35-129) 08/19/17 05:50 Lactate Dehydrogenase TNR 08/17/17 02:31 Total Creatine Kinase 85 units/L (30-135) 08/17/17 02:31 Troponin T < 0.010 ng/mL (0.00-0.029) 08/17/17 02:31 Total Protein 6.9 g/dL (6.3-8.2) 08/19/17 05:50 Albumin 3.1 g/dL (3.9-5) L 08/19/17 05:50 Albumin/Globulin Ratio 0.8 % 08/19/17 05:50 TSH 1.650 mlU/mL (0.270-4.200) 08/17/17 03:01 Urine Color Yellow (Yellow) 08/17/17 04:45 Urine Turbidity Hazy (Clear) 08/17/17 04:45 Urine pH 5.0 (5.0-7.0) 08/17/17 04:45 Ur Specific [place] 1.008 (1.003-1.030) 08/17/17 04:45 Urine Protein <15 mg/dl mg/dL (Negative) 08/17/17 04:45 Urine Glucose (UA) Neg mg/dL (Negative) 08/17/17 04:45 Urine Ketones Neg mg/dL (Negative) 08/17/17 04:45 Urine Blood Neg (Negative) 08/17/17 04:45 Urine Nitrite Neg (Negative) 08/17/17 04:45 Urine Bilirubin Neg (Negative) 08/17/17 04:45 Urine Urobilinogen < 2.0 mg/dL (<2.0) 08/17/17 04:45 Ur Leukocyte Esterase Neg (Negative) 08/17/17 04:45 Urine WBC (Auto) < 1.0 /HPF (0.0-6.0) 08/17/17 04:45 Urine RBC (Auto) 1.0 /HPF (0.0-6.0) 08/17/17 04:45 U Epithel Cells (Auto) < 1.0 /HPF (0-13.0) 08/17/17 04:45 Amorphous Crystals Few 08/17/17 04:45
[2017-08-20 06:40] LABS: Basophils # (Auto) 0.1 K/mm3 (0.0-0.1); Basophils % (Auto) 0.9 % (0.0-1.8); Eosinophils # (Auto) 0.1 K/mm3 (0.0-0.4); Eosinophils % (Auto) 1.5 % (0.0-4.3); Hematocrit 30.9 % (30.3-42.9); Hemoglobin 10.1 gm/dl (10.1-14.3); Lymphocytes # (Auto) 1.2 K/mm3 (1.2-5.4); Mean Corpuscular HGB Conc 33 % (30-34); Mean Corpuscular Hemoglobin 27 pg (28-32); Mean Corpuscular Volume 81 fl (79-97); Monocytes # (Auto) 1.1 K/mm3 (0.0-0.8); Platelet Count 398 K/mm3 (140-440); Red Blood Count 3.81 M/mm3 (3.65-5.03); Red Cell Distribution Width 17.1 % (13.2-15.2)
[2017-08-20 06:56] LABS: Albumin 2.6 g/dL (3.9-5); BUN/Creatinine Ratio 11; Blood Urea Nitrogen 9 mg/dL (7-17); Calcium 11.2 mg/dL (8.4-10.2); Hemolysis Index 17
[2017-08-20 06:57] LABS: Alanine Aminotransferase < 5 units/L (7-56)
[2017-08-20] MEDS: HEPARIN SUB-Q SCH ×3 (06:57→23:26)
--- NOTE | 2017-08-20 09:40 | Hem/Onc Progress Note ---
Assessment and Plan Patient is confused possibly related to hypercalcemia.and met ds will ck ct head Subjective Date of service: 08/20/17 Interval history: Patient known to me. Metastatic non-small cell lung cancer. She received immunotherapy had mixed response. He did have progressive disease in the abdomen but primary tumor shrank which could be related to radiation. She was to start Alimta next week but presented to the hospital with weakness and hypercalcemia. cont to be weak Objective - Constitutional Vitals: Last Vital Signs Temp 98 F 08/20/17 02:00 Pulse 83 08/20/17 02:00 Resp 16 08/20/17 02:00 BP 165/79 08/20/17 02:00 Pulse Ox 97 08/20/17 02:00 General appearance: cachectic Performance status: 4-completely disabled - Neck Neck: supple - Respiratory Respiratory effort: Positive: normal - Cardiovascular Rhythm: regular - Gastrointestinal General gastrointestinal: Present: soft - Labs Lab Results: Laboratory Results - last 24 hr 08/19/17 08/20/17 08/20/17 08:59 05:31 05:31 WBC 10.7 9.9 RBC 3.92 3.81 Hgb 10.6 10.1 Hct 32.0 30.9 MCV 82 81 MCH 27 L 27 L MCHC 33 33 RDW 16.8 H 17.1 H Plt Count 410 398 Lymph % (Auto) 12.4 L 12.0 L [place] % (Auto) 13.9 H 11.0 H Eos % (Auto) 2.6 1.5 Baso % (Auto) 1.1 0.9 Lymph # 1.3 1.2 [place] # 1.5 H 1.1 H Eos # 0.3 0.1 Baso # 0.1 0.1 Seg Neutrophils % 70.0 74.6 H Seg Neutrophils # 7.5 7.4 Sodium 142 Potassium 4.1 D Chloride 108.4 H Carbon Dioxide 21 L Anion Gap 17 BUN 9 Creatinine 0.8 Estimated GFR > 60 BUN/Creatinine Ratio 11 Glucose 96 Calcium 11.2 H Total Bilirubin 0.30 AST 10 ALT < 5 L Alkaline Phosphatase 67 Total Protein 7.2 Albumin 2.6 L Albumin/Globulin Ratio 0.6
[2017-08-20] MEDS: MORPHINE IV PRN (10:49)
--- NOTE | 2017-08-20 12:46 | Progress Note ---
Assessment and Plan Assessment and plan: Hypercalcemia with Calcium 12.3 on admission. Admitted to medical floor IV fluid Discussed with Dr. Hector, Oncologist Pamidronate iv ordered by Oncologist, on admission Calcium now 11.2 , down from 12.3 on admission. Lung cancer with metastases to bone. Managed by Dr. Hector Metabolic encephalopathy with confusion, drowsiness. MRI Brain ordered by Oncologist. Discussed with Dr. Hector Malnutrition, Consulted Agency Owner Full code status History Interval history: Still generalized weakness, still confused no fever no chest pain Hospitalist Physical - Physical exam Narrative exam: Gen : Not in acute distress, lying in bed,malnourished,ill looking HEENT:Normocephalic, atraumatic Neck: supple, No JVD Lungs: Clear to auscultation, no crackles, no wheeze, no rhonchi, Heart :S1 and S2 reg, no murmurs, rubs or gallop Abd:soft, non tender, non distended, normal bowel sounds Ext: No edema, no clubbing, no cyanosis Neuro: lethargic, confused, no focal signs - Constitutional Vitals: Temp Pulse Resp BP Pulse Ox 97.8 F 90 18 167/83 98 08/20/17 08:00 08/20/17 10:00 08/20/17 10:00 08/20/17 08:00 08/20/17 12:15 Results - Labs CBC & Chem 7: 08/20/17 05:31 08/20/17 05:31 Labs: Laboratory Last Values WBC 9.9 K/mm3 (4.5-11.0) 08/20/17 05:31 RBC 3.81 M/mm3 (3.65-5.03) 08/20/17 05:31 Hgb 10.1 gm/dl (10.1-14.3) 08/20/17 05:31 Hct 30.9 % (30.3-42.9) 08/20/17 05:31 MCV 81 fl (79-97) 08/20/17 05:31 MCH 27 pg (28-32) L 08/20/17 05:31 MCHC 33 % (30-34) 08/20/17 05:31 RDW 17.1 % (13.2-15.2) H 08/20/17 05:31 Plt Count 398 K/mm3 (140-440) 08/20/17 05:31 Lymph % (Auto) 12.0 % (13.4-35.0) L 08/20/17 05:31 [place] % (Auto) 11.0 % (0.0-7.3) H 08/20/17 05:31 Eos % (Auto) 1.5 % (0.0-4.3) 08/20/17 05:31 Baso % (Auto) 0.9 % (0.0-1.8) 08/20/17 05:31 Lymph # 1.2 K/mm3 (1.2-5.4) 08/20/17 05:31 [place] # 1.1 K/mm3 (0.0-0.8) H 08/20/17 05:31 Eos # 0.1 K/mm3 (0.0-0.4) 08/20/17 05:31 Baso # 0.1 K/mm3 (0.0-0.1) 08/20/17 05:31 Seg Neutrophils % 74.6 % (40.0-70.0) H 08/20/17 05:31 Seg Neutrophils # 7.4 K/mm3 (1.8-7.7) 08/20/17 05:31 Sodium 142 mmol/L (137-145) 08/20/17 05:31 Potassium 4.1 mmol/L (3.6-5.0) D 08/20/17 05:31 Chloride 108.4 mmol/L (98-107) H 08/20/17 05:31 Carbon Dioxide 21 mmol/L (22-30) L 08/20/17 05:31 Anion Gap 17 mmol/L 08/20/17 05:31 BUN 9 mg/dL (7-17) 08/20/17 05:31 Creatinine 0.8 mg/dL (0.7-1.2) 08/20/17 05:31 Estimated GFR > 60 ml/min 08/20/17 05:31 BUN/Creatinine Ratio 11 % 08/20/17 05:31 Glucose 96 mg/dL (65-100) 08/20/17 05:31 Lactic Acid 1.00 mmol/L (0.7-2.0) 08/17/17 03:01 Calcium 11.2 mg/dL (8.4-10.2) H 08/20/17 05:31 Total Bilirubin 0.30 mg/dL (0.1-1.2) 08/20/17 05:31 AST 10 units/L (5-40) 08/20/17 05:31 ALT < 5 units/L (7-56) L 08/20/17 05:31 Alkaline Phosphatase 67 units/L (35-129) 08/20/17 05:31 Lactate Dehydrogenase TNR 08/17/17 02:31 Total Creatine Kinase 85 units/L (30-135) 08/17/17 02:31 Troponin T < 0.010 ng/mL (0.00-0.029) 08/17/17 02:31 Total Protein 7.2 g/dL (6.3-8.2) 08/20/17 05:31 Albumin 2.6 g/dL (3.9-5) L 08/20/17 05:31 Albumin/Globulin Ratio 0.6 % 08/20/17 05:31 TSH 1.650 mlU/mL (0.270-4.200) 08/17/17 03:01 Urine Color Yellow (Yellow) 08/17/17 04:45 Urine Turbidity Hazy (Clear) 08/17/17 04:45 Urine pH 5.0 (5.0-7.0) 08/17/17 04:45 Ur Specific [place] 1.008 (1.003-1.030) 08/17/17 04:45 Urine Protein <15 mg/dl mg/dL (Negative) 08/17/17 04:45 Urine Glucose (UA) Neg mg/dL (Negative) 08/17/17 04:45 Urine Ketones Neg mg/dL (Negative) 08/17/17 04:45 Urine Blood Neg (Negative) 08/17/17 04:45 Urine Nitrite Neg (Negative) 08/17/17 04:45 Urine Bilirubin Neg (Negative) 08/17/17 04:45 Urine Urobilinogen < 2.0 mg/dL (<2.0) 08/17/17 04:45 Ur Leukocyte Esterase Neg (Negative) 08/17/17 04:45 Urine WBC (Auto) < 1.0 /HPF (0.0-6.0) 08/17/17 04:45 Urine RBC (Auto) 1.0 /HPF (0.0-6.0) 08/17/17 04:45 U Epithel Cells (Auto) < 1.0 /HPF (0-13.0) 08/17/17 04:45 Amorphous Crystals Few 08/17/17 04:45
[2017-08-20] MEDS: NACL 0.9% 1000 ML 1,000 ML IV SCH (14:23)
[2017-08-21] MEDS: NACL 0.9% 1000 ML 1,000 ML IV SCH ×2 (03:45→17:12)
[2017-08-21] MEDS: HEPARIN SUB-Q SCH ×3 (05:29→22:22)
[2017-08-21 06:20] LABS: Basophils # (Auto) 0.1 K/mm3 (0.0-0.1); Basophils % (Auto) 1.2 % (0.0-1.8); Eosinophils # (Auto) 0.2 K/mm3 (0.0-0.4); Eosinophils % (Auto) 2.1 % (0.0-4.3); Hematocrit 28.9 % (30.3-42.9); Hemoglobin 9.5 gm/dl (10.1-14.3); Lymphocytes # (Auto) 1.8 K/mm3 (1.2-5.4); Lymphocytes % (Auto) 18.3 % (13.4-35.0); Mean Corpuscular HGB Conc 33 % (30-34); Mean Corpuscular Hemoglobin 27 pg (28-32); Mean Corpuscular Volume 82 fl (79-97); Monocytes # (Auto) 1.4 K/mm3 (0.0-0.8); Monocytes % (Auto) 14.1 % (0.0-7.3); Platelet Count 373 K/mm3 (140-440); Red Blood Count 3.54 M/mm3 (3.65-5.03)
[2017-08-21 06:47] LABS: Albumin 2.6 g/dL (3.9-5); BUN/Creatinine Ratio 18; Blood Urea Nitrogen 14 mg/dL (7-17); Calcium 11.1 mg/dL (8.4-10.2); Hemolysis Index 6
[2017-08-21 06:50] LABS: Alanine Aminotransferase < 5 units/L (7-56)
[2017-08-21] MEDS: ATIVAN IV PRN ×2 (08:38→22:22)
--- NOTE | 2017-08-21 09:54 | Hem/Onc Progress Note ---
Assessment and Plan Follow-up on the MRI report. Calcium continues to slowly going down. Patient not a good candidate for further chemotherapy and will be discussing possibly hospice with the family. I have already talked to one of the daughters about it Subjective Date of service: 08/21/17 Interval history: Patient known to me. Metastatic non-small cell lung cancer. She received immunotherapy had mixed response. He did have progressive disease in the abdomen but primary tumor shrank which could be related to radiation. She was to start Alimta next week but presented to the hospital with weakness and hypercalcemia. cont to be weak For MRI head today Objective - Exam Narrative Exam: Undergoing MRI weak - Constitutional Vitals: Last Vital Signs Temp 98.8 F 08/21/17 08:11 Pulse 78 08/21/17 08:11 Resp 16 08/21/17 08:11 BP 150/77 08/21/17 08:11 Pulse Ox 93 08/21/17 08:11 - Labs Lab Results: Laboratory Results - last 24 hr 08/21/17 08/21/17 05:49 05:49 WBC 10.1 RBC 3.54 L Hgb 9.5 L Hct 28.9 L MCV 82 MCH 27 L MCHC 33 RDW 17.0 H Plt Count 373 Lymph % (Auto) 18.3 [place] % (Auto) 14.1 H Eos % (Auto) 2.1 Baso % (Auto) 1.2 Lymph # 1.8 [place] # 1.4 H Eos # 0.2 Baso # 0.1 Seg Neutrophils % 64.3 Seg Neutrophils # 6.5 Sodium 143 Potassium 3.8 Chloride 108.9 H Carbon Dioxide 22 Anion Gap 16 BUN 14 Creatinine 0.8 Estimated GFR > 60 BUN/Creatinine Ratio 18 Glucose 85 Calcium 11.1 H Total Bilirubin 0.30 AST 8 ALT < 5 L Alkaline Phosphatase 60 Total Protein 6.8 Albumin 2.6 L Albumin/Globulin Ratio 0.6
--- NOTE | 2017-08-21 11:43 | Progress Note ---
Assessment and Plan Assessment and plan: Hypercalcemia with Calcium 12.3 on admission. Admitted to medical floor IV fluid Discussed with Dr. Hector, Oncologist Pamidronate iv given Calcium now 11.2 , down from 12.3 on admission. Lung cancer with metastases to bone. Managed by Dr. Hector Metabolic encephalopathy with confusion, drowsiness. MRI Brain ordered by Oncologist, done but report pending Malnutrition, Consulted Electromechanical Equipment Assembler Full code status History Interval history: Still generalized weakness, still confused no fever no chest pain Hospitalist Physical - Physical exam Narrative exam: Gen : Not in acute distress, lying in bed,malnourished,ill looking HEENT:Normocephalic, atraumatic Neck: supple, No JVD Lungs: Clear to auscultation, no crackles, no wheeze, no rhonchi, Heart :S1 and S2 reg, no murmurs, rubs or gallop Abd:soft, non tender, non distended, normal bowel sounds Ext: No edema, no clubbing, no cyanosis Neuro: lethargic, confused, no focal signs - Constitutional Vitals: Temp Pulse Resp BP Pulse Ox 98.8 F 78 16 150/77 93 08/21/17 08:11 08/21/17 10:00 08/21/17 10:00 08/21/17 08:11 08/21/17 10:00 Results - Labs CBC & Chem 7: 08/21/17 05:49 08/21/17 05:49 Labs: Laboratory Last Values WBC 10.1 K/mm3 (4.5-11.0) 08/21/17 05:49 RBC 3.54 M/mm3 (3.65-5.03) L 08/21/17 05:49 Hgb 9.5 gm/dl (10.1-14.3) L 08/21/17 05:49 Hct 28.9 % (30.3-42.9) L 08/21/17 05:49 MCV 82 fl (79-97) 08/21/17 05:49 MCH 27 pg (28-32) L 08/21/17 05:49 MCHC 33 % (30-34) 08/21/17 05:49 RDW 17.0 % (13.2-15.2) H 08/21/17 05:49 Plt Count 373 K/mm3 (140-440) 08/21/17 05:49 Lymph % (Auto) 18.3 % (13.4-35.0) 08/21/17 05:49 [place] % (Auto) 14.1 % (0.0-7.3) H 08/21/17 05:49 Eos % (Auto) 2.1 % (0.0-4.3) 08/21/17 05:49 Baso % (Auto) 1.2 % (0.0-1.8) 08/21/17 05:49 Lymph # 1.8 K/mm3 (1.2-5.4) 08/21/17 05:49 [place] # 1.4 K/mm3 (0.0-0.8) H 08/21/17 05:49 Eos # 0.2 K/mm3 (0.0-0.4) 08/21/17 05:49 Baso # 0.1 K/mm3 (0.0-0.1) 08/21/17 05:49 Seg Neutrophils % 64.3 % (40.0-70.0) 08/21/17 05:49 Seg Neutrophils # 6.5 K/mm3 (1.8-7.7) 08/21/17 05:49 Sodium 143 mmol/L (137-145) 08/21/17 05:49 Potassium 3.8 mmol/L (3.6-5.0) 08/21/17 05:49 Chloride 108.9 mmol/L (98-107) H 08/21/17 05:49 Carbon Dioxide 22 mmol/L (22-30) 08/21/17 05:49 Anion Gap 16 mmol/L 08/21/17 05:49 BUN 14 mg/dL (7-17) 08/21/17 05:49 Creatinine 0.8 mg/dL (0.7-1.2) 08/21/17 05:49 Estimated GFR > 60 ml/min 08/21/17 05:49 BUN/Creatinine Ratio 18 % 08/21/17 05:49 Glucose 85 mg/dL (65-100) 08/21/17 05:49 Lactic Acid 1.00 mmol/L (0.7-2.0) 08/17/17 03:01 Calcium 11.1 mg/dL (8.4-10.2) H 08/21/17 05:49 Total Bilirubin 0.30 mg/dL (0.1-1.2) 08/21/17 05:49 AST 8 units/L (5-40) 08/21/17 05:49 ALT < 5 units/L (7-56) L 08/21/17 05:49 Alkaline Phosphatase 60 units/L (35-129) 08/21/17 05:49 Lactate Dehydrogenase TNR 08/17/17 02:31 Total Creatine Kinase 85 units/L (30-135) 08/17/17 02:31 Troponin T < 0.010 ng/mL (0.00-0.029) 08/17/17 02:31 Total Protein 6.8 g/dL (6.3-8.2) 08/21/17 05:49 Albumin 2.6 g/dL (3.9-5) L 08/21/17 05:49 Albumin/Globulin Ratio 0.6 % 08/21/17 05:49 TSH 1.650 mlU/mL (0.270-4.200) 08/17/17 03:01 Urine Color Yellow (Yellow) 08/17/17 04:45 Urine Turbidity Hazy (Clear) 08/17/17 04:45 Urine pH 5.0 (5.0-7.0) 08/17/17 04:45 Ur Specific [place] 1.008 (1.003-1.030) 08/17/17 04:45 Urine Protein <15 mg/dl mg/dL (Negative) 08/17/17 04:45 Urine Glucose (UA) Neg mg/dL (Negative) 08/17/17 04:45 Urine Ketones Neg mg/dL (Negative) 08/17/17 04:45 Urine Blood Neg (Negative) 08/17/17 04:45 Urine Nitrite Neg (Negative) 08/17/17 04:45 Urine Bilirubin Neg (Negative) 08/17/17 04:45 Urine Urobilinogen < 2.0 mg/dL (<2.0) 08/17/17 04:45 Ur Leukocyte Esterase Neg (Negative) 08/17/17 04:45 Urine WBC (Auto) < 1.0 /HPF (0.0-6.0) 08/17/17 04:45 Urine RBC (Auto) 1.0 /HPF (0.0-6.0) 08/17/17 04:45 U Epithel Cells (Auto) < 1.0 /HPF (0-13.0) 08/17/17 04:45 Amorphous Crystals Few 08/17/17 04:45
--- NOTE | 2017-08-21 16:07 | Magnetic Resonance Report ---
MRI BRAIN WITH AND WITHOUT CONTRAST INDICATION: Metastatic lung carcinoma, confusion. COMPARISON: 03/17/2017 brain MRI and 08/17/2017 CT. FINDINGS: Multiplanar and multisequence MRI of the brain performed before and after 15 mL MultiHance intravenously somewhat limited due to patient motion despite sedation. Diffuse leptomeningeal IV contrast enhancement and slight thickening again noted, greatest in the right frontal lobe with stable right frontal elise hole changes. Least leptomeningeal enhancement noted in the left frontal region as on axial series 15, image 19. Symmetric, age-appropriate, mildly enlarged ventricles and sulci. No acute infarct, hemorrhage, mass effect or midline shift. No abnormal extra-axial masses. Small bilateral ganglion lacunar infarcts measuring up to 6 mm, axial series 6, image 14. Normal major intracranial vascular flow voids. Normal posterior fossa with preserved basilar cisterns and symmetric seventh and eighth nerve complexes. Bilateral cataract surgery. Hypoplastic/aplastic bilateral frontal sinuses. Left ethmoid sinus sclerosis also again noted, axial series 6, image 9. Slight right posterior ethmoid and minimal right inferior maxillary sinus mucosal thickening. Clear remainder imaged paranasal sinuses and mastoid air cells. Normal midline structures without evidence of Chiari malformation. CONCLUSION: 1. Diffuse leptomeningeal enhancement and thickening again noted, greatest right frontal with overlying craniotomy as well. This hence felt iatrogenic/postoperative, though other differential considerations again include meningitis or metastatic/carcinomatosis, amongst others. No definite suspicious brain parenchymal enhancement though evident at this time. 2. Various other incidental findings, as above. Thank you for the opportunity to participate in this patient's care.
[2017-08-22] MEDS: HEPARIN SUB-Q SCH ×2 (06:04→14:04)
[2017-08-22 06:23] LABS: Basophils % (Auto) 0.5 % (0.0-1.8); Eosinophils # (Auto) 0.2 K/mm3 (0.0-0.4); Eosinophils % (Auto) 2.4 % (0.0-4.3); Hematocrit 27.7 % (30.3-42.9); Hemoglobin 9.3 gm/dl (10.1-14.3); Lymphocytes # (Auto) 1.3 K/mm3 (1.2-5.4); Lymphocytes % (Auto) 12.6 % (13.4-35.0); Mean Corpuscular HGB Conc 34 % (30-34); Mean Corpuscular Hemoglobin 27 pg (28-32); Mean Corpuscular Volume 81 fl (79-97); Monocytes # (Auto) 1.3 K/mm3 (0.0-0.8); Monocytes % (Auto) 13.1 % (0.0-7.3); Platelet Count 371 K/mm3 (140-440); Red Blood Count 3.42 M/mm3 (3.65-5.03); Red Cell Distribution Width 17.2 % (13.2-15.2)
[2017-08-22 06:49] LABS: Albumin 2.5 g/dL (3.9-5); BUN/Creatinine Ratio 18; Blood Urea Nitrogen 14 mg/dL (7-17); Hemolysis Index 16
[2017-08-22 06:53] LABS: Alanine Aminotransferase < 5 units/L (7-56)
[2017-08-22] MEDS: NACL 0.9% 1000 ML 1,000 ML IV SCH (07:44)
--- NOTE | 2017-08-22 08:33 | Discharge Summary ---
Providers - Providers Date of Admission: 08/17/17 06:17 Date of discharge: 08/22/17 Attending physician: GAURAV NIETO 08/17/17 08:02 Consult to Physician [CONS] Routine Comment: Dr. 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 The patient has a history of coronary artery disease, followed at [facility]. A cardiac catheterization within the past year documented patent stents in the circumflex and LAD vessels, with no significant residual lesions. Left ventricular systolic function has been normal, including an echocardiogram done on this presentation which documents ejection fraction at 60-65%. It will be noted that on serial echocardiograms, she has calcification of the aortic valves with a small transaortic gradient, consistent with mild aortic stenosis. On the current echocardiogram, the mean transaortic gradient was 11 mmHg. The patient was admitted with diagnosis of acute hypoxemic respiratory failure. Cardiology consultation was requested for etiology possibly related to CHF. However, chest x-ray has a normal cardiac silhouette and no evidence of pulmonary edema or heart failure. The patient clinically had no lower extremity edema, and no orthopnea. Cardiology recommended continue medical therapy and no intervention. Pulmonary consultation was obtained and felt that the respiratory failure secondary to acute bronchitis versus pneumonia. Patient continued to clinically improve and recommendations for Levaquin for 7 days per pulmonary. Patient will receive a Medrol Dosepak taper at discharge. Patient should have outpatient sleep study evaluation and treatment with CPAP if clinically indicated. CM met with the pt. and her to inquire on their decision at discharge. They are not sure that they want to go to the [facility]. The is to go see it and see if that is what they want. Otherwise, if they so choose not to go, they have income and can get a motel room or return to the nursing home. Case management will continue to work with discharge planning. Dedicated discharge time 32 minutes. Disposition: DC- TO HOME OR SELFCARE Time spent for discharge: 32 - Discharge Diagnoses (1) Pneumonitis Status: Acute (2) Acute hypoxemic respiratory failure Status: Acute Core Measure Documentation - Palliative Care Palliative Care/ Comfort Measures: Not Applicable - Core Measures Any of the following diagnoses?: none Exam - Constitutional Vitals: Temp Pulse Resp BP Pulse Ox 98.6 F 79 20 151/82 99 08/22/17 07:48 08/22/17 07:48 08/22/17 07:48 08/22/17 07:48 08/22/17 07:48 General appearance: Present: no acute distress, well-nourished - EENT Eyes: Present: PERRL ENT: hearing intact, clear oral mucosa - Neck Neck: Present: supple, normal ROM - Respiratory Respiratory effort: normal Respiratory: bilateral: CTA - Cardiovascular Heart Sounds: Present: S1 & S2. Absent: rub, click - Extremities Extremities: pulses symmetrical, No edema Peripheral Pulses: within normal limits - Abdominal General gastrointestinal: Present: soft, non-tender, non-distended, normal bowel sounds Female genitourinary: Present: normal - Integumentary Integumentary: Present: clear, warm, dry - Musculoskeletal Musculoskeletal: gait normal, strength equal bilaterally - Psychiatric Psychiatric: appropriate mood/affect, intact judgment & insight - Neurologic Neurologic: CNII-XII intact, moves all extremities Plan Activity: advance as tolerated Weight Bearing Status: Weight Bear as Tolerated Diet: regular Follow up with: PRIMARY MD YAAKOV [Primary Care Provider] - 3-5 Days LISBETH CARSON MD [Staff Physician] - 7 Days JOSUE LUNA MD [Staff Physician] - 7 Days Prescriptions: Levofloxacin [Levaquin] 750 mg PO QDAY #7 tablet methylPREDNISolone [Medrol Dose Gurdeep] 4 mg PO QAM #1 pack Oxycodone HCl/Acetaminophen [Percocet 10/325 mg] 1 each PO Q8HR PRN #12 tablet PRN Reason: Pain
--- NOTE | 2017-08-22 09:05 | Discharge Summary ---
Providers - Providers Date of Admission: 08/17/17 06:17 Date of discharge: 08/22/17 Attending physician: GAURAV NIETO 08/17/17 08:02 Consult to Physician [CONS] Routine Comment: Dr. 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 She has had radiotherapy and chemotherapy. She presented with generalized weakness followed by fall because of weakness. She was therefore brought to hospital. In ED, was found to have hypercalcemia with Calcium 12.3. She denied chest pain, shortness of breath. She was evaluated in ED, and Oncologist was consulted. She was admitted to med/surg floor for further management. The patient received appropriate management with IV fluid hydration and pamidronate. Oncology order MRI of the brain which revealed diffuse leptomeningeal enhancement and thickening noted greatest right frontal and overlying craniotomy as well. On the differential was felt to be metastatic/carcinomatosis. Oncology felt Patient not a good candidate for further chemotherapy and family agreed on hospice. Case management is attempting to arrange for hospice. Once hospice has been arranged, patient will be discharged. Dedicated discharge time 34 minutes. Disposition: DC-01 TO HOME OR SELFCARE - Discharge Diagnoses (1) Pneumonitis Status: Acute (2) Acute hypoxemic respiratory failure Status: Acute Core Measure Documentation - Palliative Care Palliative Care/ Comfort Measures: Hospice Care - Core Measures Any of the following diagnoses?: none Exam - Constitutional Vitals: Temp Pulse Resp BP Pulse Ox 98.6 F 79 20 151/82 99 08/22/17 07:48 08/22/17 07:48 08/22/17 07:48 08/22/17 07:48 08/22/17 07:48 General appearance: Present: no acute distress, well-nourished - EENT Eyes: Present: PERRL ENT: hearing intact, clear oral mucosa - Neck Neck: Present: supple, normal ROM - Respiratory Respiratory effort: normal Respiratory: bilateral: CTA - Cardiovascular Heart Sounds: Present: S1 & S2. Absent: rub, click - Extremities Extremities: pulses symmetrical, No edema Peripheral Pulses: within normal limits - Abdominal General gastrointestinal: Present: soft, non-tender, non-distended, normal bowel sounds Female genitourinary: Present: normal - Integumentary Integumentary: Present: clear, warm, dry - Musculoskeletal Musculoskeletal: gait normal, strength equal bilaterally - Psychiatric Psychiatric: appropriate mood/affect, intact judgment & insight - Neurologic Neurologic: CNII-XII intact, moves all extremities Plan Activity: advance as tolerated Weight Bearing Status: Weight Bear as Tolerated Diet: other (per hospice) Follow up with: LISBETH CARSON MD [Staff Physician] - 7 Days JOSUE LUNA MD [Staff Physician] - 7 Days PRIMARY MD YAAKOV [Primary Care Provider] - 3-5 Days
--- NOTE | 2017-08-22 09:27 | Hem/Onc Progress Note ---
Assessment and Plan Patient not a good candidate for further chemotherapy and d/w Daughter Karie. She is agreeable to hospice. I have placed the order. Prognosis poor r Subjective Date of service: 08/22/17 Interval history: Patient known to me. Metastatic non-small cell lung cancer. She received immunotherapy had mixed response. He did have progressive disease in the abdomen but primary tumor shrank which could be related to radiation. She was to start Alimta next week but presented to the hospital with weakness and hypercalcemia. cont to be weak mri findings noted Objective - Exam Narrative Exam: weaker - Constitutional Vitals: Last Vital Signs Temp 98.6 F 08/22/17 07:48 Pulse 79 08/22/17 07:48 Resp 20 08/22/17 07:48 BP 151/82 08/22/17 07:48 Pulse Ox 99 08/22/17 07:48 Performance status: 4-completely disabled - Neck Neck: supple - Respiratory Respiratory effort: Positive: normal - Cardiovascular Rhythm: regular - Gastrointestinal General gastrointestinal: Present: soft - Labs Lab Results: Laboratory Results - last 24 hr 08/22/17 08/22/17 06:03 06:03 WBC 10.1 RBC 3.42 L Hgb 9.3 L Hct 27.7 L MCV 81 MCH 27 L MCHC 34 RDW 17.2 H Plt Count 371 Lymph % (Auto) 12.6 L Vermilion % (Auto) 13.1 H Eos % (Auto) 2.4 Baso % (Auto) 0.5 Lymph # 1.3 Vermilion # 1.3 H Eos # 0.2 Baso # 0.0 Seg Neutrophils % 71.4 H Seg Neutrophils # 7.2 Sodium 142 Potassium 3.4 L Chloride 109.0 H Carbon Dioxide 23 Anion Gap 13 BUN 14 Creatinine 0.8 Estimated GFR > 60 BUN/Creatinine Ratio 18 Glucose 78 Calcium 11.0 H Total Bilirubin 0.30 AST 11 ALT < 5 L Alkaline Phosphatase 58 Total Protein 6.1 L Albumin 2.5 L Albumin/Globulin Ratio 0.7
[2017-08-22 13:34] VITALS: BP 164/79
== END 2017-08-22 15:05 | disposition home health service (06) | DRG 70 ==
LOC: ED 02:12 → 4A 06:17 → 2B-ACE 17:12
PROVIDERS: ADMIT Internal Medicine; ATTEND Hospitalist
DX: G93.41 Metabolic encephalopathy (principal); J18.9 Pneumonia, unspecified organism; J96.01 Acute respiratory failure with hypoxia; Z68.1 Body mass index [BMI] 19.9 or less, adult; E46 Unspecified protein-calorie malnutrition; C79.51 Secondary malignant neoplasm of bone; C34.90 Malignant neoplasm of unspecified part of unspecified bronchus or lung; E83.52 Hypercalcemia; W18.39XA Other fall on same level, initial encounter; Z82.49 Family history of ischemic heart disease and other diseases of the circulatory system; Z92.3 Personal history of irradiation; Z92.21 Personal history of antineoplastic chemotherapy; Y93.89 Activity, other specified; Y92.89 Other specified places as the place of occurrence of the external cause; Y99.8 Other external cause status
CPT/HCPCS: 36415; 70450; 70553; 71045; 72125; 72170; 80053; 81001; 82140; 82550; 84443; 84484; 85025; 87086; 93005; 93010; 94760; 96361; 96374; A9577; J1644; J2060; J2270; J2405; J2430; J7030; J7040